=== PATIENT | male | born 1980 | race American Indian/Alaskan Native ===

== ENCOUNTER 2016-10-23 19:23 | Emergency (ER) | payer BC ==
[2016-10-23 20:17] VITALS: TEMP 98.5
[2016-10-23 20:19] VITALS: BMI 29.7
--- NOTE | 2016-10-23 20:29 | ED PDOC ---
Arrival/HPI - General Time Seen by Provider: 10/23/16 20:17 Historian: Patient - History of Present Illness Narrative History of Present Illness (Text): 10/23/16 20:29 36 y/o male, pmh including chronic history of elevated bloo Allergies/Home Meds Allergies/Adverse Reactions: Allergies No Known Allergies Allergy (Verified 10/23/16 20:28) Physical Exam Vital Signs Temp Pulse Resp BP Pulse Ox 10/23/16 20:16 98.5 F 88 17 163/116 H 100 Medical Decision Making ED Course and Treatment: 10/23/16 20:29 -CT head -EKG
--- NOTE | 2016-10-23 22:26 | ED PDOC ---
Arrival/HPI - General Chief Complaint: High Blood Pressure Time Seen by Provider: 10/23/16 20:17 Historian: Patient - History of Present Illness Narrative History of Present Illness (Text): 10/23/16 22:24 A 36 year old male presents to the emergency department with high blood pressure. Patient reports he went for an outpatient circumcision procedure. Patient was told he was hypertensive and advised to come to emergency department. Patient is complaining of a headache because hasn't eaten due to procedure. Denies any other complaints at this time. Symptom Onset: Sudden Symptom Course: Unchanged Modifying Factors (Text): none Associated Symptoms (Text): none Past Medical History - Provider Review Nursing Documentation Reviewed: Yes - Infectious Disease Hx of Infectious Diseases: None - Pulmonary Hx Asthma: Yes - Psychiatric Hx Substance Use: No - Surgical History Other/Comment: adult circumcision 10/23/16 - Anesthesia Hx Anesthesia: Yes Hx Anesthesia Reactions: No Hx Malignant Hyperthermia: No Family/Social History - Physician Review Nursing Documentation Reviewed: Yes Family/Social History: No Known Family HX Smoking Status: Unknown If Ever Smoked Hx Alcohol Use: No Hx Substance Use: No Allergies/Home Meds Allergies/Adverse Reactions: Allergies No Known Allergies Allergy (Verified 10/23/16 20:28) Review of Systems - Physician Review All systems were reviewed & negative as marked: Yes - Review of Systems Constitutional: absent: Fevers Gastrointestinal: absent: Abdominal Pain Neurological: Headache Physical Exam Vital Signs Reviewed: Yes Vital Signs Temp Pulse Resp BP Pulse Ox 10/24/16 00:00 85 18 146/90 98 10/23/16 23:09 90 163/128 H 10/23/16 20:48 90 159/96 H 10/23/16 20:37 90 16 159/96 H 100 10/23/16 20:16 98.5 F 88 17 163/116 H 100 Temperature: Afebrile Blood Pressure: Hypertensive Pulse: Regular Respiratory Rate: Normal Appearance: Positive for: Well-Appearing, Non-Toxic, Comfortable Pain Distress: None Mental Status: Positive for: Alert and Oriented X 3 - Systems Exam Head: Present: Atraumatic, Normocephalic Pupils: Present: PERRL Extroacular Muscles: Present: EOMI Conjunctiva: Present: Normal Mouth: Present: Moist Mucous Membranes Neck: Present: Normal Range of Motion Respiratory/Chest: Present: Clear to Auscultation, Good Air Exchange. No: Respiratory Distress, Accessory Muscle Use Cardiovascular: Present: Regular Rate and Rhythm, Normal S1, S2. No: Murmurs Abdomen: Present: Normal Bowel Sounds. No: Tenderness, Distention, Peritoneal Signs Back: Present: Normal Inspection Upper Extremity: Present: Normal Inspection. No: Cyanosis, Edema Lower Extremity: Present: Normal Inspection. No: Edema Neurological: Present: GCS=15, CN II-XII Intact, Speech Normal Skin: Present: Warm, Dry, Normal Color. No: Rashes Psychiatric: Present: Alert, Oriented x 3, Normal Insight, Normal Concentration Medical Decision Making ED Course and Treatment: 10/23/16 22:21 Impression: A 36 year old male with high blood pressure. Plan: -- EKG -- CT head -- Tylenol, Zestril -- Reassess and disposition Progress Notes: EKG: Ordered, reviewed, and independently interpreted the EKG. Rate : 87 BPM Rhythm : NSR Interpretation : Nonspecific ST segment changes Re-evaluation Time: 00:08 Reassessment Condition: Re-examined, Improved - EKG Interpretation Interpreted by ED Physician: Yes Type: 12 lead EKG - Medication Orders Current Medication Orders: Discontinued Medications Acetaminophen (Tylenol 325mg Tab) 650 mg PO STAT STA Stop: 10/23/16 20:29 Last Admin: 10/23/16 20:48 Dose: 650 mg Hydralazine HCl (Apresoline) 10 mg IVP STAT STA Stop: 10/23/16 22:45 Last Admin: 10/23/16 23:09 Dose: 10 mg Lisinopril (Zestril) 5 mg PO STAT STA Stop: 10/23/16 20:34 Last Admin: 10/23/16 20:48 Dose: 5 mg - Scribe Statement The provider has reviewed the documentation as recorded by the Salvador Little Provider Scribe Attestation: All medical record entries made by the Salvador were at my direction and personally dictated by me. I have reviewed the chart and agree that the record accurately reflects my personal performance of the history, physical exam, medical decision making, and the department course for this patient. I have also personally directed, reviewed, and agree with the discharge instructions and disposition. Disposition/Present on Arrival - Present on Arrival Any Indicators Present on Arrival: No History of DVT/PE: No History of Uncontrolled Diabetes: No Urinary Catheter: No History of Decub. Ulcer: No History Surgical Site Infection Following: None - Disposition Have Diagnosis and Disposition been Completed?: Yes Diagnosis: Hypertension Disposition: HOME/ ROUTINE Disposition Time: 00:10 Patient Problems: Current Active Problems Problem Status Onset Hypertension Acute Condition: GOOD Discharge Instructions (ExitCare): Hypertension (ED) Prescriptions: Lisinopril [Prinivil] 10 mg PO DAILY #14 tablet Referrals: PCP,NEIL [Primary Care Provider] - Follow up with primary Michael Szymanski MD [Staff Provider] - Follow up with primary Forms: [employer] (Frisian)
[2016-10-24 00:03] VITALS: BP 146/90; PULSE 85; RESP 18; O2SAT 98
--- NOTE | 2016-10-24 11:43 | CARD ---
APPROVED REPORT EKG Measurement Heart [id number] <Conclusion> Normal sinus rhythm Normal ECG
== END 2016-10-24 00:30 | disposition home or self-care (01) ==
LOC: ED 19:23
DX: I10 Essential (primary) hypertension (principal)
CPT/HCPCS: 93005; 96374; 99284; J0360